=== PATIENT | female | born 1985 | race African-American/Black ===

== ENCOUNTER 2019-09-17 18:21 | Emergency (ER) | payer MEDICAID ==
[~2019-09-17] VITALS: Ht 172.7 cm; Wt 74.8 kg
[2019-09-17 18:19] VITALS: BP 154/98
--- NOTE | 2019-09-17 18:23 | Emergency Room Report ---
History of Present Illness General Chief Complaint: Upper Respiratory Illness Source: Patient Present Illness HPI 33-year-old female with no significant past medical history here complaining of 3 days of generalized body ache, nausea vomiting, minor diarrhea as well as cough and congestion. 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 Denies any sore throat. Denies recent travel or fever. Has not taken medication for symptom relief. Reports that she does smoke marijuana however denies tobacco smoke and other drug use. Denies alcohol intake. Sitting comfortably with stable vital signs, is afebrile, and oxygenation are within normal limits. Denies . Allergies: Coded Allergies: No Known Allergies (Unverified , 09/17/19) COVID-19 Screening Contact w/high risk pt: No Recent Travel to affected area: No Experienced COVID-19 symptoms?: Yes COVID-19 symptoms experienced: Shortness of Breath, Cough, Flu-Like Symptoms Patient History Past Medical History: see triage record Past Surgical History: none Pertinent Family History: none Last Menstrual Period: 08/23/2019 Now: No Immunizations: UTD Reviewed Nursing Documentation: PMH: Agreed; PSxH: Agreed Nursing Documentation-PMH Past Medical History: No Stated History Review of Systems All Other Systems: negative except mentioned in HPI Physical Exam Vital Signs Date Time Temp Pulse Resp B/P (MAP) Pulse Ox O2 Delivery O2 Flow Rate FiO2 09/17/19 18:15 98.2 86 18 154/98 (116) 96 Room Air Sp02 EP Interpretation: reviewed, normal General Appearance: no apparent distress, alert, GCS 15, non-toxic Head: normocephalic, atraumatic Eyes: bilateral eye normal inspection, bilateral eye PERRL ENT: normal ENT inspection Neck: full range of motion, supple/symm/no masses Respiratory: chest non-tender, lungs clear, normal breath sounds, no rhonchi, no wheezing, speaking full sentences Cardiovascular #1: regular rate, rhythm, no edema, no murmur, normal capillary refill Gastrointestinal: non tender, soft Rectal: deferred Genitourinary: no CVA tenderness Musculoskeletal: back normal Neurologic: alert, oriented Psychiatric: normal inspection Skin: no rash Lymphatic: no adenopathy Medical Decision Making PA Attestation All my diagnosis and treatment plans were reviewed ad discussed with my supervising physician Dr. Sterling Diagnostic Impression: Primary Impression: Upper respiratory infection ER Course 33-year-old female with no significant past medical history here complaining of 3 days of generalized body ache, nausea vomiting, minor diarrhea as well as cough and congestion. 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 Denies any sore throat. Denies recent travel or fever. Has not taken medication for symptom relief. Reports that she does smoke marijuana however denies tobacco smoke and other drug use. Denies alcohol intake. Sitting comfortably with stable vital signs, is afebrile, and oxygenation are within normal limits. Denies . Ddx considered but are not limited to: strep pharyngitis, URI, tonsillitis, peritonsillar abscess, influneza Vital signs: are WNL, pt. is afebrile H&PE are most consistent with: URI ORDERS: Chest x-ray, rapid influenza test, guaifenesin, Zofran, dicyclomine, albuterol, Tamiflu ED INTERVENTIONS: None required at this time. DISCHARGE: At this time pt. is stable for d/c to home. Will provide printed patient care instructions, and any necessary prescriptions. Care plan and follow up instructions have been discussed with the patient prior to discharge. Take medication as directed, follow-up with your primary doctor, you need to stay home for self quarantine due to Covid 19 precautions for 14 days Chest X-Ray Diagnostic Results Chest X-Ray Diagnostic Results : Chest X-Ray Ordered: Yes # of Views/Limited/Complete: 1 View Indication: Shortness of Breath EP Interpretation: Yes OSCAR Xray: Interpretation reviewed, by supervising MD, and agrees with findings. Interpretation: no consolidation, no effusion, no pneumothorax Impression: No acute disease Electronically Signed by: Yady Sue PA-C Last Vital Signs Date Time Temp Pulse Resp B/P (MAP) Pulse Ox O2 Delivery O2 Flow Rate FiO2 09/17/19 18:19 98.2 86 18 154/98 96 Room Air Disposition: HOME, SELF-CARE Condition: Stable Scripts Dicyclomine Hcl* (DICYCLOMINE HCL*) 10 Mg Capsule 10 MG ORAL TID, #10 CAP Prov: Yady Kaplan 09/17/19 Oseltamivir Phosphate (Tamiflu) 75 Mg Capsule 75 MG ORAL TWICE A DAY for 5 Days, #10 CAP Prov: Yady Kaplan 09/17/19 Albuterol Sulfate (VENTOLIN HFA) 18 Gm Hfa.aer.ad 2 PUFFS INH EVERY 6 HOURS, #18 GM 0 Refills Prov: Yady Kaplan 09/17/19 Guaifenesin* (GUAIFENESIN*) 100 Mg/5 Ml Liquid 15 ML ORAL Q8H, #120 ML 0 Refills Prov: Yady Kaplan 09/17/19 Ondansetron (Zofran) 4 Mg Tablet 4 MG ORAL Q6H PRN for Nausea & Vomiting, #10 TAB Prov: Yady Kaplan 09/17/19 Patient Instructions: Upper Respiratory Infection, Adult Additional Instructions: Take medication as directed, follow-up with your primary doctor, you need to stay home for self quarantine due to Covid 19 precautions for 14 days Yady Kaplan Sep 17, 2019 18:23
[2019-09-17] MEDS ORDERED: GUAIFENESI100 MG/5 M ORAL (18:24)
[2019-09-17] MEDS ORDERED: VENTOLIN HFA18 GM INH (18:24)
[2019-09-17] MEDS ORDERED: ZOFRAN4 M1 ORAL (18:24)
[2019-09-17] MEDS ORDERED: TAMIFLU75 MG ORAL (18:24)
[2019-09-17] MEDS ORDERED: DICYCLOMINE HCL10 MG ORAL (19:00)
[2019-09-17 19:07] VITALS: BP 154/98
--- NOTE | 2019-09-18 09:44 | Diagnostic Imaging Report ---
Indication: Cough Technique: One view of the chest Comparison: none Findings: Lungs and pleural spaces are clear. The heart size is normal. Impression: Negative
== END 2019-09-17 19:06 | disposition home or self-care (01) ==
LOC: EDBD 18:21 → EMR 18:30
DX: J06.9 Acute upper respiratory infection, unspecified (principal); R11.2 Nausea with vomiting, unspecified; R19.7 Diarrhea, unspecified; F12.90 Cannabis use, unspecified, uncomplicated; R06.02 Shortness of breath
CPT/HCPCS: 71045; 86710; Z7502; 99283